=== PATIENT | female | born 1950 | race Caucasian/White ===

== ENCOUNTER 2019-10-13 13:26 | Emergency (ER) | payer MEDICARE, SELFPAY ==
[2019-10-13] VITALS (8 sets, daily range): BP systolic 146–178; BP diastolic 82–109; PULSE 57–96; RESP 15–18; TEMP 36.6; O2SAT 99–100
--- NOTE | ~2019-10-13 | CT_ITS ---
EXAMINATION: CT brain wo con EXAM DATE: 10/13/2019 14:58 INDICATION: Generalized headache. TECHNIQUE: Spiral CT of the head was performed without contrast. Axial, coronal and sagittal images were reviewed. The dose-length product (DLP) for this examination was 605.33 mGy-cm. The exposure w as tailored according to patient size, and iterative reconstruction (ASIR) was used as additional dos e reduction technique. There is no prior study for comparison. FINDINGS: There is no acute intraparenchymal hemorrhage. No evidence of intraparenchymal brain mass lesion. No evidence of acute infarction. There is no mass effect or midline shift. The ventricles are normal in size. There are no extra-axial collections. There are no acute calvarial fractures. T he orbits are unremarkable. Soft tissue is unremarkable. There is moderate bilateral ethmoid mucope riosteal thickening. IMPRESSION: 1. No acute intracranial findings. 2. Moderate ethmoid mucoperiosteal thickening. Reviewed, dictated and finalized at location A.
--- NOTE | 2019-10-13 13:31 | ED.WEAKNESS ---
HPI - Weakness General Chief complaint: Weakness Stated complaint: WEAKNESS Time Seen by Provider: 10/13/19 13:29 Source: patient Mode of arrival: EMS Limitations: no limitations History of Present Illness HPI Narrative: A 69 y/o female presents to the ED, via EMS, with c/o generalized weakness. Pt states that she was at work today at 1215 when her vision started flashing and she felt dizzy. She notes that her symptoms resolved at 1245. Pt took her blood pressure and it was 184/104, but she does not have a PMHx of HTN. She denies MARRERO. Pt has no other complaints at this time. Complaint: generalized weakness Onset (ago): hour(s) (1) Duration: now resolved Associated symptoms: other (Dizziness, flashing vision) Related Data Home Medications Medication Instructions Recorded Confirmed albuterol sulfate See Rx Instructions .ROUTE .COMPLEX 07/23/19 albuterol sulfate 90 mcg/actuation 2 puff INHALATION Q4-6H PRN gm 07/23/19 aerosol inhaler alprazolam 0.5 mg tablet 0.5 mg PO DAILY PRN 07/23/19 benzonatate 100 mg capsule 100 mg PO TID PRN 07/23/19 cholecalciferol (vitamin D3) 50 2,000 unit PO DAILY 07/23/19 mcg (2,000 unit) capsule clarithromycin 500 mg tablet 500 mg PO Q12H 07/23/19 fluticasone 100 mcg-salmeterol 50 See Rx Instructions .ROUTE .COMPLEX 07/23/19 mcg/dose blistr powdr for inhalation fluticasone propionate 50 1 - 2 spray NASAL .COMPLEX ml 07/23/19 mcg/actuation nasal spray,suspension hydrochlorothiazide 12.5 mg capsule 12.5 mg PO DAILY 07/23/19 montelukast 10 mg tablet 10 mg PO DAILY 07/23/19 oxycodone-acetaminophen 5 mg-325 1 tablet PO Q6H PRN 07/23/19 mg tablet prednisone 20 mg tablet 20 mg PO DAILY 07/23/19 temazepam 15 mg capsule 15 mg PO .everyday at bedtime PRN 07/23/19 cap Allergies Allergy/AdvReac Type Severity Reaction Status Date / Time No Known Allergies Allergy Unverified 10/13/19 13:35 Review of Systems Review of Systems: All systems reviewed & are unremarkable except as noted in HPI and below Constitutional: Constitutional: Reports weakness (Generalized) Eyes: Eyes: Reports change in vision (Flashing vision) Neurologic: Reports dizziness and Denies headache(s) [facility] Past Medical History Medical History (Updated 10/13/19 @ 18:08 by Marin Brito MD) Asthma Surgical History Surgical History (Updated 10/13/19 @ 13:31 by Sharda Kramer) No pertinent past surgical history Family History Family History Father Carcinoma of colon Mother Family history of Alzheimer's disease Social History Social History Smoking status: Never smoker Alcohol intake: current Exam Const: General: healthy appearing, no acute distress and well developed Nutritional Appearance: well nourished Orientation/consciousness: patient oriented x3 (alert) and Other orientation findings (Alert) Limitations: no limitations HENMT: Head: normocephalic and atraumatic Ears: external ears normal General nose exam: No nasal discharge present and no epistaxis Face and sinus: face symmetric Mouth: Yes lip normal, Yes tongue normal and Yes moist mucous membranes Throat: other (No exudate, no erythema) Eyes: Conjunctivae: conjunctivae normal Sclera: sclerae normal EOM: EOMs intact bilaterally Neck: Neck: full ROM, no lymphadenopathy and supple Thyroid: thyroid normal Chest: Chest palpation & inspection: no tenderness Resp: Effort & Inspection: normal respiratory effort Auscultation: clear to auscultation bilaterally, no rales, no rhonchi, no wheezes and other (breath sounds equal) Cardio: Rate: regular rate Rhythm: regular rhythm Heart sounds: no gallops and no murmurs GI: Inspection: non-distended GI Palp: No abdominal tenderness and Yes Soft to palpation Auscultation: other (bowel sounds present) : General: Yes no CVA tenderness Back/Spine/
--- NOTE | 2019-10-13 14:45 | ECG_ITS ---
Measurements Intervals [place] Rate: 66 P: 48 NM: 120 QRS: 14 QRSD: 85 T: 3 QT: 402 QTc: 422 Interpretive Statements SINUS RHYTHM BORDERLINE ST-T WAVE ABNORMALITY- ANT/INF LEADS BASELINE ARTIFACT- V4-V6 BORDERLINE ECG Electronically Signed On 10-13-2019 15:54:46 CDT by Misbah Crystal D.O.
[2019-10-13] MEDS: LACTATED RINGERS 1,000 ML 999 ML IV CONT (15:08)
[2019-10-13] MEDS: PROCHLORPERAZINE EDISYLATE 10 MG/2 ML VIAL IV PUSH (15:10)
[2019-10-13 15:25] LABS: Basophils Absolute Auto 0.1 K/mm3 (0.0-0.1); Basophils Percent Auto 0.9 % (0.2-1.2); Eosinophils Absolute Auto 0.3 K/mm3 (0-0.3); Eosinophils Percent Auto 3.7 % (0-4.4); Hematocrit 39.4 % (37.0-47.0); Hemoglobin 12.8 g/dL (12.0-15.0); Immature Granulocyte Absolute 0.01 K/mm3 (0.00-0.031); Immature Granulocyte Percent A 0.1 % (0-0.5); Lymphocytes Absolute Auto 2.46 K/mm3 (0.9-3.2); Mean Corpuscular HGB Conc 32.5 g/dl (32-36); Mean Corpuscular Hemoglobin 30.6 pg (26-34); Mean Corpuscular Volume 94.3 fl (80-100); Mean Platelet Volume 10.5 fl (7.4-10.4); Monocytes Absolute Auto 0.7 K/mm3 (0.1-0.6); Monocytes Percent Auto 9.3 % (2.6-8.5); Neutrophils Absolute Auto 3.6 K/mm3 (1.3-6.7); Platelet Count Result 294 k/mm3 (150-375); Red Blood Count 4.18 M/mm3 (4.2-5.4); Red Cell Distribution Width 14.2 % (11.5-14.5)
[2019-10-13 15:28] LABS: Add Urine Microscopic? NO; Appearance Urine Clear (Clear); Bilirubin Urine Negative (Negative); Blood Urine Negative (Negative); Color Urine Colorless (Yellow); Glucose Urine UA Negative (Negative); Ketones Urine Negative (Negative); Leukocyte Esterase Ur Negative LEU/UL (Negative); Nitrate Urine Negative (Negative); Protein Urine Negative (Negative); Specific Grav Ur 1.006 (1.001-1.035); Urobilinogen Urine Negative mg/dL (<2.0)
[2019-10-13 15:37] LABS: Alanine Aminotransferase 18 U/L (4-35); Albumin Level 4.5 g/dL (3.5-5.1); Alkaline Phosphatase 83 U/L (38-126); Aspartate Amino Transferase 22 U/L (14-36); Bilirubin,Total 0.6 mg/dL (0.2-1.3); Blood Urea Nitrogen 14 mg/dL (7-17); Calcium 9.5 mg/dL (8.4-10.2); Carbon Dioxide 26 mmol/L (22-30); Chloride 106 mmol/L (98-107); Estimated CRCL calculation 65 ml/min; Estimated Glomerular Filt Rate > 60; Glucose 101 mg/dL (65-105); Potassium 3.9 mmol/L (3.4-5.0); Sodium 139 mmol/L (137-145)
[2019-10-13 15:48] LABS: Troponin I < 0.012 ng/mL (0.000-0.034)
== END 2019-10-13 18:33 | disposition home or self-care (01) ==
PROVIDERS: Emergency Provider Emergency Medicine
DX: H53.9 Unspecified visual disturbance (principal); I10 Essential (primary) hypertension; J45.909 Unspecified asthma, uncomplicated; R94.31 Abnormal electrocardiogram [ECG] [EKG]
CPT/HCPCS: 36415; 70450; 80053; 81003; 84484; 85025; 93005; 96361; 96374; 99284; J0780; J7120

== ENCOUNTER → 2020-04-26 13:43 | Outpatient (CLI) | payer MEDICARE, SELFPAY ==
--- NOTE | ~2020-04-26 | MM_ITS ---
EXAMINATION: MM scrn villa implant BI w madai HISTORY: Screening mammogram TECHNIQUE: Craniocaudal and mediolateral oblique 3-D tomosynthesis images with implant displacement a nd synthetic 2-D images were generated. Craniocaudal and mediolateral oblique views of the breasts wi thout implant displacement were obtained using full field digital mammography. CAD analysis was submi tted and interpreted. COMPARISON: 08/20/2014, 03/06/2013 bilateral implant digital screening mammogram examinations BREAST PARENCHYMAL COMPOSITION: There are scattered areas of fibroglandular density. FINDINGS: Bilateral collapsed ruptured implants. 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 There is no evidence of suspicious mass, calcification, or architectural distortion to suggest malignancy in e ither breast. There has been no suspicious interval change. IMPRESSION: 1. No mammographic evidence of malignancy. 2. Recommend routine screening mammography in one year. BI-RADS Category 2: Benign finding(s). Reviewed, dictated and finalized at location A.
== END ==
PROVIDERS: PCP Emergency Medicine; Visit Provider Obstetrics & Gynecology
DX: Z12.31 Encounter for screening mammogram for malignant neoplasm of breast (principal)
CPT/HCPCS: 77063; 77067

== ENCOUNTER → 2020-08-25 14:58 | Outpatient (CLI) | payer MEDICARE, SELFPAY ==
--- NOTE | ~2020-08-25 | CT_ITS ---
EXAMINATION: CT sinus wo con DATE: 08/25/2020 15:20 INDICATION: Chronic sinusitis TECHNIQUE: Computed tomography (CT) of the paranasal sinuses was performed without intravenous contra st. The dose-length product (DLP) was 274.70 mGy-cm. Iterative reconstruction was used. COMPARISON: None FINDINGS: The frontal sinuses are hypoplastic. There is mild mucosal thickening of the frontal and ma xillary sinuses and ethmoidal air cells. There is a small amount of debris in the sphenoid sinuses. T he bilateral ostiomeatal complexes are occluded at the maxillary ostia and infundibula. Visualized so ft tissues are unremarkable. Again noted is mild leftward deviation of the nasal septum. IMPRESSION: 1. Sinusitis as detailed above without significant change. Reviewed, dictated and finalized at location A. [facility] [employer]
== END ==
PROVIDERS: PCP Emergency Medicine; Visit Provider Otolaryngology
DX: J32.9 Chronic sinusitis, unspecified (principal)
CPT/HCPCS: 70486